=== PATIENT | female | born 1965 | race Caucasian/White ===

== ENCOUNTER 2019-03-12 20:20 | Inpatient (IN) | payer BC, MEDICAID, OTHER ==
[~2019-03-12] VITALS: Ht 167.6 cm; Wt 56.4 kg
[2019-03-20 12:20] VITALS: BP 127/84
== END 2019-03-20 14:52 | disposition home or self-care (01) | DRG 501 ==
LOC: ED 22:18 → EDIP 22:19 → 3NW 23:12 → DCLOUNGE 03-20 14:35
PROVIDERS: ADMIT Internal Medicine; ATTEND Internal Medicine
PROC: 0KB90ZZ Excision of Right Lower Arm and Wrist Muscle, Open Approach (ICD-10-PCS; principal; 2019-03-12)
DX: M72.8 Other fibroblastic disorders (principal); L02.413 Cutaneous abscess of right upper limb; A28.0 Pasteurellosis; F17.213 Nicotine dependence, cigarettes, with withdrawal; L03.113 Cellulitis of right upper limb; D64.9 Anemia, unspecified; D69.6 Thrombocytopenia, unspecified; E16.2 Hypoglycemia, unspecified; E83.42 Hypomagnesemia; E87.6 Hypokalemia; F12.90 Cannabis use, unspecified, uncomplicated; F17.210 Nicotine dependence, cigarettes, uncomplicated; S61.531A Puncture wound without foreign body of right wrist, initial encounter; R73.9 Hyperglycemia, unspecified; S60.811A Abrasion of right wrist, initial encounter; W55.01XA Bitten by cat, initial encounter; Z80.3 Family history of malignant neoplasm of breast; Y93.89 Activity, other specified; Y92.89 Other specified places as the place of occurrence of the external cause; Y99.8 Other external cause status
CPT/HCPCS: 36415; 96365; 96375; 99285; S0020; 80048; 80053; 82040; 82550; 83605; 83735; 84100; 85025; 85651; 86140; 87040; 87070; 87075; 87205; 90471; 90715; G0378; J0295; J1650; J2250; J2405; J2704; J3010; J2270; J3475